=== PATIENT | male | born 1980 | race Caucasian/White ===

== ENCOUNTER 2020-04-27 20:37 | Emergency (ER) | payer BC, OTHER ==
--- NOTE | 2020-04-27 21:12 | ED General ---
General Chief Complaint: General Problems/Pain Stated Complaint: BLOOD PRESSURE PROBLEMS Nursing Triage Note: Pt complaining of bp issues, stating that it keeps spiking. Pt states he has intermittent nausea and a headache Nursing Sepsis Screen: No Definite Risk History of Present Illness Date Seen by Provider: Apr 27, 2020 Time Seen by Provider: 21:07 Initial Comments Patient presenting to emergency department for multiple symptoms including headache dizziness nausea indigestion upset stomach fatigue and increased sleeping hypertension and tachycardia and generally not feeling well. Patient says that he has had off-and-on symptoms like this for the past 5-6 years and he has had multiple workups including cardiac and endocrine including pheochromocytoma testing. He describes it as he started feeling poorly when he took out the trash as he had dyspnea on exertion and then when he got back he felt nauseated and dizzy and he took his blood pressure and his blood pressure was 150/100 and then he said his blood pressure decreased to 140/70 and he consider this a very large fluctuation in his blood pressure and this made him worried given he has family history of heart attacks and strokes and wanted to be evaluated in the emergency department. Allergies and Home Medications Allergies Coded Allergies: codeine (Verified Allergy, Unknown, 04/27/20) Patient Home Medication List Home Medication List Reviewed: Yes Review of Systems Review of Systems Constitutional: dizziness, malaise, weakness EENTM: no symptoms reported Respiratory: dyspnea on exertion Cardiovascular: no symptoms reported Gastrointestinal: abdominal pain, nausea Genitourinary: no symptoms reported Musculoskeletal: no symptoms reported Skin: no symptoms reported Psychiatric/Neurological: Anxiety, Headache All Other Systems Reviewed Negative Unless Noted: Yes Past Cfbmysd-Incctc-Ewfhim Hx Patient Social History Alcohol Use: Denies Use Recreational Drug Use: No Smoking Status: Never a Smoker Recent Foreign Travel: No Contact w/Someone Who Travel: No Recent Infectious Disease Expo: No Recent Hopitalizations: No Physical Abuse: No Sexual Abuse: No Past Medical History Surgeries: No Respiratory: No Cardiac: Yes Hypertension Neurological: No Genitourinary: No Gastrointestinal: No Musculoskeletal: No Endocrine: No HEENT: No Cancer: No Psychosocial: Yes Anxiety, Depression Integumentary: No Physical Exam Vital Signs Vital Signs - First Documented 04/27/20 20:45 Temp 36.8 Pulse 88 Resp 18 B/P (MAP) 152/85 (107) Pulse Ox 99 O2 Delivery Room Air Capillary Refill : Less Than 3 Seconds Height, Weight, BMI Height: '" Weight: lbs. oz. kg; BMI Method: General Appearance: No Apparent Distress, WD/WN HEENT: TMs Normal Neck: Supple Respiratory: Lungs Clear, No Respiratory Distress Cardiovascular: Regular Rate, Rhythm, Normal Peripheral Pulses Gastrointestinal: Non Tender, Soft Extremity: Normal Capillary Refill, No Pedal Edema Neurologic/Psychiatric: Alert, Oriented x3, No Motor/Sensory Deficits Skin: Warm/Dry Progress/Results/Core Measures Suspected Sepsis Recent Fever Within 48 Hours: No Infection Criteria Present: None New/Unexplained Altered Menta: No Sepsis Screen: No Definite Risk SIRS Temperature: Pulse: 88 Respiratory Rate: 18 Laboratory Tests 04/27/20 21:10: White Blood Count 5.1 Blood Pressure 152 /85 Mean: 107 Laboratory Tests 04/27/20 21:10: Creatinine 1.21, Platelet Count 178, Total Bilirubin 0.3 Results/Orders Lab Results Laboratory Tests Test 04/27/20 21:10 04/27/20 21:40 Range/Units White Blood Count 5.1 4.3-11.0 10^3/uL Red Blood Count 4.57 4.35-5.85 10^6/uL Hemoglobin 13.9 13.3-17.7 G/DL Hematocrit 40 40-54 % Mean Corpuscular Volume 87 80-99 FL Mean Corpuscular Hemoglobin 30 25-34 PG Mean Corpuscular Hemoglobin Concent 35 32-36 G/DL Red Cell Distribution Width 11.9 10.0-14.5 % Platelet Count 178 130-400 10^3/uL Mean Platelet Volume 11.0 H 7.4-10.4 FL Immature Granulocyte % (Auto) 0 % Neutrophils (%) (Auto) 51 42-75 % Lymphocytes (%) (Auto) 36 12-44 % Monocytes (%) (Auto) 8 0-12 % Eosinophils (%) (Auto) 4 0-10 % Basophils (%) (Auto) 1 0-10 % Neutrophils # (Auto) 2.6 1.8-7.8 X 10^3 Lymphocytes # (Auto) 1.8 1.0-4.0 X 10^3 Monocytes # (Auto) 0.4 0.0-1.0 X 10^3 Eosinophils # (Auto) 0.2 0.0-0.3 10^3/uL Basophils # (Auto) 0.0 0.0-0.1 10^3/uL Immature Granulocyte # (Auto) 0.0 0.0-0.1 10^3/uL Sodium Level 135 135-145 MMOL/L Potassium Level 4.2 3.6-5.0 MMOL/L Chloride Level 100 98-107 MMOL/L Carbon Dioxide Level 27 21-32 MMOL/L Anion Gap 8 5-14 MMOL/L Blood Urea Nitrogen 12 7-18 MG/DL Creatinine 1.21 0.60-1.30 MG/DL Estimat Glomerular Filtration Rate > 60 BUN/Creatinine Ratio 10 Glucose Level 100 70-105 MG/DL Calcium Level 9.6 8.5-10.1 MG/DL Corrected Calcium 9.3 8.5-10.1 MG/DL Magnesium Level 2.1 1.6-2.4 MG/DL Total Bilirubin 0.3 0.1-1.0 MG/DL Aspartate Amino Transf (AST/SGOT) 37 H 5-34 U/L Alanine Aminotransferase (ALT/SGPT) 75 H 0-55 U/L Alkaline Phosphatase 73 40-136 U/L Troponin I < 0.30 <0.30 NG/ML Pro-B-Type Natriuretic Peptide < 5.0 <75.0 PG/ML Total Protein 7.2 6.4-8.2 GM/DL Albumin 4.4 3.2-4.5 GM/DL Lipase 36 8-78 U/L Serum Alcohol < 10 <10 MG/DL Urine Color STRAW Urine Clarity CLEAR Urine pH 7.0 5-9 Urine Specific [place] <=1.005 1.016-1.022 Urine Protein NEGATIVE NEGATIVE Urine Glucose (UA) NEGATIVE NEGATIVE Urine Ketones NEGATIVE NEGATIVE Urine Nitrite NEGATIVE NEGATIVE Urine Bilirubin NEGATIVE NEGATIVE Urine Urobilinogen 0.2 < = 1.0 MG/DL Urine Leukocyte Esterase NEGATIVE NEGATIVE Urine RBC (Auto) NEGATIVE NEGATIVE Urine RBC NONE /HPF Urine WBC NONE /HPF Urine Squamous Epithelial Cells RARE /HPF Urine Crystals NONE /LPF Urine Bacteria NEGATIVE /HPF Urine Casts NONE /LPF Urine Mucus NEGATIVE /LPF Urine Culture Indicated NO Urine Opiates Screen NEGATIVE NEGATIVE Urine Oxycodone Screen NEGATIVE NEGATIVE Urine Methadone Screen NEGATIVE NEGATIVE Urine Propoxyphene Screen NEGATIVE NEGATIVE Urine Barbiturates Screen NEGATIVE NEGATIVE Ur Tricyclic Antidepressants Screen POSITIVE H NEGATIVE Urine Phencyclidine Screen NEGATIVE NEGATIVE Urine Amphetamines Screen NEGATIVE NEGATIVE Urine Methamphetamines Screen NEGATIVE NEGATIVE Urine Benzodiazepines Screen NEGATIVE NEGATIVE Urine Cocaine Screen NEGATIVE NEGATIVE Urine Cannabinoids Screen NEGATIVE NEGATIVE My Orders Orders - TORI PETERSON DO Iv/Invasive Line Insertion .IV start (04/27/20 21:04) Cbc With Automated Diff (04/27/20 21:04) Comprehensive Metabolic Panel (04/27/20 21:04) Troponin I Fs (04/27/20 21:04) Probnp Fs (04/27/20 21:04) Magnesium (04/27/20 21:04) Lipase (04/27/20 21:04) Chest 1 View Ap/Pa Only (04/27/20 21:04) Ua Culture If Indicated (04/27/20 21:04) Drug Screen Stat (Urine) (04/27/20 21:04) Alcohol (04/27/20 21:04) Ns Iv 1000 Ml (Sodium Chloride 0.9%) (04/27/20 21:15) Ed Iv/Invasive Line Start (04/27/20 21:22) Monotest (04/27/20 22:13) Vital Signs/I&O 04/27/20 20:45 Temp 36.8 Pulse 88 Resp 18 B/P (MAP) 152/85 (107) Pulse Ox 99 O2 Delivery Room Air Capillary Refill : Less Than 3 Seconds Blood Pressure Mean: 107 Progress Note : Progress Note Patient with multiple nonspecific symptoms that seem to be more of a long- standing issue said he felt worse tonight. I offered to give him something for his headache and nausea but he says since his blood pressures come down that his symptoms have completely resolved. He says that when this happens he gets a bag of IV fluids and that makes him feel better. I will check labs give him IV fluids and then reassess. Patient's symptoms completely resolved and he is asymptomatic here he has a heart rate of 78 and a blood pressure 131/77. His workup is completely normal except for mild transaminitis which I told him could be related to Tylenol alcohol viral infections or other medication such as his Elavil there is a side effect listed for hepatitis. I went through all the possible side effects from his lisinopril and Elavil and he certainly does have multiple symptoms from these medications and I told him it might be a good idea to follow with his primary care provider and discuss his medications and possible alternatives. No acute pathology is detected and he appears well with normal vital signs and is asymptomatic so he'll be discharged in stable condition told to follow with his primary care provider this week and come back to the ED sooner with any new worsening pain shortness of breath or other general concerns. Of note I will do a mononucleosis test that he does not want to stay for the results so I will discharge him and told him to follow with his primary care provider for the resu lts of this as well. Patient aware and agreeable with plan and verbalized understanding of the above instructions. Departure Impression Primary Impression: Fatigue Qualified Codes: R53.82 - Chronic fatigue, unspecified Additional Impressions: Dizziness Transaminitis VARMA (dyspnea on exertion) Disposition: 01 HOME, SELF-CARE Condition: Stable Departure-Patient Inst. Referrals: NO,LOCAL PHYSICIAN (PCP/Family) Primary Care Physician Patient Instructions: Dizziness, Adult ED Add. Discharge Instructions: Follow with your PCP within 1 week to discuss you symptoms and medications. All discharge instructions reviewed with patient and/or family. Voiced understa nding. TORI PETERSON DO Apr 27, 2020 21:12
[2020-04-27] MEDS ORDERED: NS IV 1000 ML 1,000 ML IV SCH (21:15)
--- NOTE | 2020-04-27 21:23 | Diagnostic Imaging Report ---
EXAM: Chest 1 view AP/PA only. INDICATION: Dyspnea on exertion. COMPARISON: None. FINDINGS: Low lung volumes. Normal heart size and central pulmonary vascularity. No focal pulmonary opacity. No pleural effusion or pneumothorax. No acute osseous finding. IMPRESSION: Low lung volumes. Chest is otherwise negative. Dictated by: Dictated on workstation # [id number]
[2020-04-27 21:27] LABS: HEMATOCRIT 40 % (40-54); HEMOGLOBIN 13.9 G/DL (13.3-17.7); MEAN CORPUSCULAR HEMOGLOBIN 30 PG (25-34); MEAN CORPUSCULAR HGB CONC 35 G/DL (32-36); MEAN CORPUSCULAR VOLUME 87 FL (80-99); PLATELET COUNT 178 10^3/uL (130-400); WHITE BLOOD COUNT 5.1 10^3/uL (4.3-11.0)
[2020-04-27 21:28] LABS: BASOPHILS % (AUTO) 1 % (0-10); EOSINOPHILS # (AUTO) 0.2 10^3/uL (0.0-0.3); EOSINOPHILS % (AUTO) 4 % (0-10); LYMPHOCYTES # (AUTO) 1.8 X 10^3 (1.0-4.0); LYMPHOCYTES % (AUTO) 36 % (12-44); MONOCYTES # (AUTO) 0.4 X 10^3 (0.0-1.0); MONOCYTES % (AUTO) 8 % (0-12); NEUTROPHILS # (AUTO) 2.6 X 10^3 (1.8-7.8); NEUTROPHILS % (AUTO) 51 % (42-75)
[2020-04-27 21:47] LABS: BILIRUBIN,URINE NEGATIVE (NEGATIVE); CLARITY,URINE CLEAR; COLOR,URINE STRAW; GLUCOSE, URINE (UA) NEGATIVE (NEGATIVE); KETONES,URINE NEGATIVE (NEGATIVE); NITRITE,URINE NEGATIVE (NEGATIVE); PROTEIN,URINE NEGATIVE (NEGATIVE)
[2020-04-27 21:48] LABS: BACTERIA,URINE NEGATIVE /HPF; LEUKOCYTE ESTERASE ,URINE NEGATIVE (NEGATIVE); SQUAMOUS EPITHELIAL CELL,UR RARE /HPF
[2020-04-27 21:48] LABS: ALANINE AMINOTRANSFERASE 75 U/L (0-55); ALBUMIN 4.4 GM/DL (3.2-4.5); ALKALINE PHOSPHATASE 73 U/L (40-136); BILIRUBIN,TOTAL 0.3 MG/DL (0.1-1.0); BUN/CREATININE RATIO 10; CALCIUM 9.6 MG/DL (8.5-10.1); CARBON DIOXIDE 27 MMOL/L (21-32); CHLORIDE 100 MMOL/L (98-107); CREATININE SERUM 1.21 MG/DL (0.60-1.30); GFR ESTIMATED > 60; GLUCOSE 100 MG/DL (70-105); MAGNESIUM 2.1 MG/DL (1.6-2.4); POTASSIUM 4.2 MMOL/L (3.6-5.0); SODIUM 135 MMOL/L (135-145); TOTAL PROTEIN 7.2 GM/DL (6.4-8.2)
[2020-04-27 21:49] LABS: LIPASE 36 U/L (8-78)
[2020-04-27 22:00] LABS: AMPHETAMINE SCREEN, URINE NEGATIVE (NEGATIVE); BARBITURATE SCREEN URINE NEGATIVE (NEGATIVE); BENZODIAZEPINES SCREEN URINE NEGATIVE (NEGATIVE); CANNABINOID SCREEN, URINE NEGATIVE (NEGATIVE); COCAINE SCREEN URINE NEGATIVE (NEGATIVE); METHADONE STAT NEGATIVE (NEGATIVE); METHAMPHETAMINE SCREEN URINE S NEGATIVE (NEGATIVE); OPIATE SCREEN URINE NEGATIVE (NEGATIVE); OXYCODONE STAT NEGATIVE (NEGATIVE); PROPOXYPHENE STAT NEGATIVE (NEGATIVE); TRICYCLIC ANTIDEPRESSANTS SCRE POSITIVE (NEGATIVE)
[2020-04-27 22:28] VITALS: BP 131/77
== END 2020-04-27 22:30 | disposition home or self-care (01) ==
LOC: EDUNIT# 20:37 → ER FS 20:42
DX: R53.83 Other fatigue (principal); R42 Dizziness and giddiness; R74.01 Elevation of levels of liver transaminase levels; R06.09 Other forms of dyspnea; F41.9 Anxiety disorder, unspecified; Z88.5 Allergy status to narcotic agent
CPT/HCPCS: 36415; 71045; 80053; 80306; 81000; 83690; 83735; 83880; 84484; 85025; 86308; 99284; G0480; 80320; 93005

== ENCOUNTER 2021-10-01 01:37 | Emergency (ER) | payer BC ==
[~2021-10-01] VITALS: Ht 190.5 cm; Wt 113.3 kg
--- NOTE | 2021-10-01 01:48 | ED General ---
General Stated Complaint: STOMACH AND LEG SPASMS History of Present Illness Date Seen by Provider: Oct 01, 2021 Time Seen by Provider: 01:48 Initial Comments 41-year-old male with PMH of anxiety and depression, schizophrenia, is here with complaints of anxiety. Patient has been on Seroquel for 1 month and he took it today around midnight. He reports feeling tingly allover within 5 minutes of taking it, and then felt a 'flash of cold' go across his abdomen. Pt has had multiple food allergies before which had a similar reaction. Pt is speaking in complete sentences. Denies shortness of breath, oral swelling or throat swelling, chest pain, abdominal pain, diarrhea, nausea and vomiting, dizziness. Patient thinks he is having a side effect to the Seroquel. Allergies and Home Medications Allergies Coded Allergies: codeine (Verified Allergy, Unknown, 04/27/20) Patient Home Medication List Home Medication List Reviewed: Yes Review of Systems Review of Systems Constitutional: no symptoms reported EENTM: no symptoms reported Respiratory: no symptoms reported Cardiovascular: no symptoms reported Gastrointestinal: no symptoms reported Genitourinary: no symptoms reported Musculoskeletal: no symptoms reported Skin: no symptoms reported Psychiatric/Neurological: No Symptoms Reported Hematologic/Lymphatic: No Symptoms Reported Immunological/Allergic: no symptoms reported, see HPI (allergy reaction to seroquel) Past Hitawtj-Gztavz-Nzewug Hx Past Medical History Surgeries: No Respiratory: No Cardiac: Yes Hypertension Neurological: No Genitourinary: No Gastrointestinal: No Musculoskeletal: No Endocrine: No HEENT: No Cancer: No Psychosocial: Yes Anxiety, Depression Integumentary: No Physical Exam Vital Signs Capillary Refill : Height, Weight, BMI Height: '" Weight: lbs. oz. kg; BMI Method: General Appearance: No Apparent Distress, Anxious HEENT: PERRL/EOMI, Normal ENT Inspection, Pharynx Normal Neck: Full Range of Motion Respiratory: Chest Non Tender, Lungs Clear, Normal Breath Sounds, No Accessory Muscle Use, No Respiratory Distress Cardiovascular: Regular Rate, Rhythm, No Edema Gastrointestinal: Normal Bowel Sounds, Non Tender, Soft Back: Normal Inspection, No CVA Tenderness Extremity: Normal Range of Motion Neurologic/Psychiatric: Alert, Oriented x3, No Motor/Sensory Deficits, Normal Mood/Affect, Other Skin: Normal Color Progress/Results/Core Measures Suspected Sepsis SIRS Temperature: Pulse: Respiratory Rate: Blood Pressure / Mean: Results/Orders Lab Results Laboratory Tests Test 10/01/21 02:06 Range/Units Urine Color YELLOW Urine Clarity CLEAR Urine pH 6.0 5-9 Urine Specific [place] <=1.005 1.016-1.022 Urine Protein NEGATIVE NEGATIVE Urine Glucose (UA) NEGATIVE NEGATIVE Urine Ketones NEGATIVE NEGATIVE Urine Nitrite NEGATIVE NEGATIVE Urine Bilirubin NEGATIVE NEGATIVE Urine Urobilinogen 0.2 < = 1.0 MG/DL Urine Leukocyte Esterase NEGATIVE NEGATIVE Urine RBC (Auto) NEGATIVE NEGATIVE Urine RBC NONE /HPF Urine WBC NONE /HPF Urine Squamous Epithelial Cells RARE /HPF Urine Crystals NONE /LPF Urine Bacteria NEGATIVE /HPF Urine Casts NONE /LPF Urine Mucus NEGATIVE /LPF Urine Culture Indicated NO My Orders Orders - ALIRIO MARTINEZ MD Ed Iv/Invasive Line Start (10/01/21 02:17) Ns Iv 1000 Ml (Sodium Chloride 0.9%) (10/01/21 02:30) Famotidine Injection (Pepcid Injection) (10/01/21 02:17) Methylprednisolone Sod Succ (Solu-Medrol (10/01/21 02:17) Ua Culture If Indicated (10/01/21 02:18) Vital Signs/I&O Capillary Refill : Progress Note : Progress Note 1. DRUG REACTION/ ALLERGY: - Labs normal - NS IVF bolus STAT - Pepcid 20mg iv/ Solumedrol 125mg iv - Pt took Benadryl at home - UA normal - Prescription for 3 days of prednisone 50mg and epi pen with instructions -Follow up with PCP within 7 days - Stop Seroquel - Call Psychiatrist tomorrow for medication reassessment - No respiratory involvement -The patient was seen in the ED, and treated appropriately to presentation at a specific point in time. Patient is informed that there is a possibility that disease and illness can evolve and change in acuity rapidly or slowly after p atient is discharged from the ER. Precautionary advice given to the patient for immediate return to ER if symptoms worsen or do not resolve, and to seek emergency care sooner rather than later. Pt also advised on the importance of PCP follow up and compliance with management and follow up plan with PCP and/or specialist, as this is part of the management plan. Pt verbally expressed understanding. Departure Impression Primary Impression: Drug allergy Disposition: 01 HOME, SELF-CARE Condition: Improved Departure-Patient Inst. Referrals: CRISTIANA MARTE MD (PCP/Family) Primary Care Physician Patient Instructions: Allergic Reaction ED, Drug Allergy Add. Discharge Instructions: - Prescription for 3 days of prednisone 50mg and epi pen with instructions -Follow up with PCP within 7 days - Stop Seroquel - Call Psychiatrist tomorrow for medication reassessment - Return to ER if symptoms worsen Scripts Prednisone (Prednisone) 50 Mg Tab 50 MG PO DAILY for 3 Days, #3 TAB Prov: ALIRIO MARTINEZ MD 10/01/21 Epinephrine (Epipen 2-[place]) 0.3 Mg/0.3 Ml Auto.injct 0.3 MG IJ ONCE for Shortness of Breath, #1 ML Prov: ALIRIO MARTINEZ MD 10/01/21 ALIRIO MARTINEZ MD Oct 01, 2021 01:48
[2021-10-01] MEDS ORDERED: FAMOTIDINE 20MG/2ML IV (PEPCID) IV STA (02:17)
[2021-10-01] MEDS ORDERED: methylPREDNISolone 125 MG (Solu-MEDROL) VIAL IV STA (02:17)
[2021-10-01] MEDS ORDERED: NS IV 1000 ML 1,000 ML IV SCH (02:30)
[2021-10-01 02:32] LABS: BILIRUBIN,URINE NEGATIVE (NEGATIVE); CLARITY,URINE CLEAR; COLOR,URINE YELLOW; GLUCOSE, URINE (UA) NEGATIVE (NEGATIVE); KETONES,URINE NEGATIVE (NEGATIVE); LEUKOCYTE ESTERASE ,URINE NEGATIVE (NEGATIVE); NITRITE,URINE NEGATIVE (NEGATIVE); PROTEIN,URINE NEGATIVE (NEGATIVE)
[2021-10-01 02:40] LABS: BACTERIA,URINE NEGATIVE /HPF; SQUAMOUS EPITHELIAL CELL,UR RARE /HPF
[2021-10-01] MEDS ORDERED: EPIN0.3P3 IJ (03:20)
[2021-10-01] MEDS ORDERED: PRD50T PO (03:20)
[2021-10-01 03:28] VITALS: BP 127/84
[2021-10-01] MEDS ORDERED: QUET25TA35 PO (03:55)
[2021-10-01] MEDS ORDERED: LISI5TAB20 PO (03:55)
[2021-10-01] MEDS ORDERED: ALPR0.254 PO (03:55)
== END 2021-10-01 03:28 | disposition home or self-care (01) ==
LOC: EDUNIT# 01:37 → ER FS 01:40
DX: R20.2 Paresthesia of skin (principal); T43.595A Adverse effect of other antipsychotics and neuroleptics, initial encounter; F41.9 Anxiety disorder, unspecified; Z79.899 Other long term (current) drug therapy
CPT/HCPCS: 81000

== ENCOUNTER 2022-04-05 19:02 | Emergency (ER) | payer BC ==
[~2022-04-05] VITALS: Ht 190.5 cm; Wt 96.0 kg
[~2022-04-05 19:02] MED LIST: ALPR0.254 PO; EPIN0.3P3 IJ; LISI5TAB20 PO; PRD50T PO; QUET25TA35 PO
[2022-04-05 19:37] LABS: BASOPHILS % (AUTO) 1 % (0-10); EOSINOPHILS # (AUTO) 0.2 10^3/uL (0.0-0.3); EOSINOPHILS % (AUTO) 3 % (0-10); HEMATOCRIT 43 % (40-54); HEMOGLOBIN 15.3 g/dL (13.3-17.7); LYMPHOCYTES # (AUTO) 1.9 10^3/uL (1.0-4.0); LYMPHOCYTES % (AUTO) 33 % (12-44); MEAN CORPUSCULAR HEMOGLOBIN 30 pg (25-34); MEAN CORPUSCULAR HGB CONC 36 g/dL (32-36); MEAN CORPUSCULAR VOLUME 84 fL (80-99); MONOCYTES # (AUTO) 0.4 10^3/uL (0.0-1.0); MONOCYTES % (AUTO) 7 % (0-12); NEUTROPHILS # (AUTO) 3.3 10^3/uL (1.8-7.8); NEUTROPHILS % (AUTO) 57 % (42-75); PLATELET COUNT 257 10^3/uL (130-400); WHITE BLOOD COUNT 5.8 10^3/uL (4.3-11.0)
--- NOTE | 2022-04-05 19:50 | Diagnostic Imaging Report ---
INDICATION: Chest pressure. Comparison is made with prior examination of 04/27/2020. FINDINGS: The heart size, mediastinal configuration, and pulmonary vascularity are within normal limits. There is no pleural effusion, pneumothorax, or pneumonia. The osseous structures are unremarkable. IMPRESSION: No acute cardiopulmonary abnormality. Dictated by: Dictated on workstation # [id number]
[2022-04-05 20:01] LABS: INR 0.9 (0.8-1.4); PROTHROMBIN TIME PATIENT 12.5 SEC (12.2-14.7)
[2022-04-05 20:02] LABS: ALANINE AMINOTRANSFERASE 26 U/L (0-55); ALBUMIN 4.8 GM/DL (3.2-4.5); ALKALINE PHOSPHATASE 74 U/L (40-136); BILIRUBIN,TOTAL 0.5 MG/DL (0.1-1.0); BUN/CREATININE RATIO 9; CALCIUM 9.6 MG/DL (8.5-10.1); CARBON DIOXIDE 30 MMOL/L (21-32); CHLORIDE 100 MMOL/L (98-107); CREATININE SERUM 1.29 MG/DL (0.60-1.30); GFR ESTIMATED 72; GLUCOSE 103 MG/DL (70-105); MAGNESIUM 2.1 MG/DL (1.6-2.4); POTASSIUM 4.1 MMOL/L (3.6-5.0); SODIUM 138 MMOL/L (135-145); TOTAL PROTEIN 7.6 GM/DL (6.4-8.2)
--- NOTE | 2022-04-05 20:20 | ED Chest Pain ---
General Chief Complaint: Chest Pain Stated Complaint: CHEST PRESSURE Nursing Triage Note: PATIENT PRESENTS TO THE ED WITH C/O LEFT SIDED CHEST PRESSURE. REPORTS HISTORY OF ANXIETY BUT STATES THIS PAIN IS DIFFERENT. PRESSURE EXTENDS INTO LEFT SHOULDER. PATIENT REPORTS HE TOOK HIS PRESCRIPTION XANAX 1 HOUR AGO AND PRESSURE HAS NOT IMPROVED. DENIES COUGH OR FEVER. Source: patient Exam Limitations: no limitations History of Present Illness Date Seen by Provider: Apr 05, 2022 Time Seen by Provider: 19:00 Initial Comments Patient is a 41-year-old male with history of anxiety presents with epigastric/left-sided chest pain starting approximately 4 hours prior to to arrival. Patient states pressure is similar to prior anxiety episodes but is longer in duration. Pressure extends into left shoulder and arm. Is nonexert ional not relieved with position change or movement. Patient did take Xanax 1 hour prior to ED arrival and at the time of this interview, his symptoms have fully resolved. He denies shortness of breath nausea sweats or exertional symptoms. He states that he is under significant stress at this time a year related to work deadlines and the holidays. He is a non-smoker. Cardiac risk factors and he has hypertension and dyslipidemia. Family history is negative. No other acute symptoms or complaints. Patient is a non-smoker Timing/Duration: 4-6 hours Severity/Quality: moderate Location: central Radiation: other Activities at Onset: other Prior CP/Workup: other Modifying Factors: improves with other Allergies and Home Medications Allergies Coded Allergies: codeine (Verified Allergy, Unknown, 04/27/20) acetaminophen (Unverified Adverse Reaction, Mild, Vomiting, 10/01/21) oxycodone (Unverified Adverse Reaction, Mild, Vomiting, 10/01/21) quetiapine (Unverified Adverse Reaction, Mild, Spasms of lower torso, 10/01/21) Patient Home Medication List Home Medication List Reviewed: Yes ALPRAZolam (ALPRAZolam) 0.25 Mg Tablet, 0.25 MG PO TID PRN for ANXIETY, (Reported) Entered as Reported by: DIPTI SALDANA on 10/01/21 0355 Epinephrine (Epipen 2-[place]) 0.3 Mg/0.3 Ml Auto.injct, 0.3 MG IJ ONCE Prescribed by: ALIRIO MARTINEZ MD on 10/01/21 0320 Lisinopril (Lisinopril) 5 Mg Tablet, 5 MG PO DAILY, (Reported) Entered as Reported by: DIPTI SALDANA on 10/01/21 0355 Prednisone (Prednisone) 50 Mg Tab, 50 MG PO DAILY Prescribed by: ALIRIO MARTINEZ MD on 10/01/21 0320 Review of Systems Review of Systems Constitutional: see HPI EENTM: See HPI Respiratory: See HPI Cardiovascular: See HPI Gastrointestinal: See HPI Genitourinary: See HPI Musculoskeletal: see HPI Skin: see HPI Psychiatric/Neurological: See HPI Endocrine: See HPI Hematologic/Lymphatic: See HPI All Other Systems Reviewed Negative Unless Noted: No Past Rvgyiwz-Nnzbgj-Snamrn Hx Patient Social History Tobacco Use?: No Use of E-Cig and/or Vaping dev: No Substance use?: No Alcohol Use?: No Pt feels they are or have been: No Immunizations Up To Date First/Initial COVID19 Vaccinat: YES Second COVID19 Vaccination Adam: YES Past Medical History Surgery/Hospitalization HX: Multiple serious food allergies, Anxiety, Insomnia, HTN Surgeries: No Respiratory: No Cardiac: Yes Hypertension Neurological: No Genitourinary: No Gastrointestinal: No Musculoskeletal: No Endocrine: No HEENT: No Cancer: No Psychosocial: Yes Anxiety, Depression Integumentary: No Physical Exam Vital Signs Vital Signs - First Documented 04/05/22 19:20 Pulse 85 Resp 17 B/P (MAP) 132/90 (104) Pulse Ox 100 O2 Delivery Room Air Capillary Refill : Less Than 3 Seconds Height, Weight, BMI Height: '" Weight: lbs. oz. kg; 26.00 BMI Method: General Appearance: No Apparent Distress, WD/WN HEENT: PERRL/EOMI, Normal ENT Inspection Neck: Full Range of Motion, Normal Inspection Respiratory: Lungs Clear, Normal Breath Sounds, Accessory Muscle Use Gastrointestinal: Non Tender, Soft Neurologic/Psychiatric: Alert, Oriented x3 Focused Exam Sepsis Stage: Ruled Out Progress/Results/Core Measures Results/Orders Lab Results Laboratory Tests Test 04/05/22 19:30 Range/Units White Blood Count 5.8 4.3-11.0 10^3/uL Red Blood Count 5.08 4.30-5.52 10^6/uL Hemoglobin 15.3 13.3-17.7 g/dL Hematocrit 43 40-54 % Mean Corpuscular Volume 84 80-99 fL Mean Corpuscular Hemoglobin 30 25-34 pg Mean Corpuscular Hemoglobin Concent 36 32-36 g/dL Red Cell Distribution Width 12.0 10.0-14.5 % Platelet Count 257 130-400 10^3/uL Mean Platelet Volume 11.0 9.0-12.2 fL Immature Granulocyte % (Auto) 0 % Neutrophils (%) (Auto) 57 42-75 % Lymphocytes (%) (Auto) 33 12-44 % Monocytes (%) (Auto) 7 0-12 % Eosinophils (%) (Auto) 3 0-10 % Basophils (%) (Auto) 1 0-10 % Neutrophils # (Auto) 3.3 1.8-7.8 10^3/uL Lymphocytes # (Auto) 1.9 1.0-4.0 10^3/uL Monocytes # (Auto) 0.4 0.0-1.0 10^3/uL Eosinophils # (Auto) 0.2 0.0-0.3 10^3/uL Basophils # (Auto) 0.0 0.0-0.1 10^3/uL Immature Granulocyte # (Auto) 0.0 0.0-0.1 10^3/uL Prothrombin Time 12.5 12.2-14.7 SEC INR Comment 0.9 0.8-1.4 Activated Partial Thromboplast Time 31 24-35 SEC Sodium Level 138 135-145 MMOL/L Potassium Level 4.1 3.6-5.0 MMOL/L Chloride Level 100 98-107 MMOL/L Carbon Dioxide Level 30 21-32 MMOL/L Anion Gap 8 5-14 MMOL/L Blood Urea Nitrogen 11 7-18 MG/DL Creatinine 1.29 0.60-1.30 MG/DL Estimat Glomerular Filtration Rate 72 BUN/Creatinine Ratio 9 Glucose Level 103 70-105 MG/DL Calcium Level 9.6 8.5-10.1 MG/DL Corrected Calcium 8.5-10.1 MG/DL Magnesium Level 2.1 1.6-2.4 MG/DL Total Bilirubin 0.5 0.1-1.0 MG/DL Aspartate Amino Transf (AST/SGOT) 16 5-34 U/L Alanine Aminotransferase (ALT/SGPT) 26 0-55 U/L Alkaline Phosphatase 74 40-136 U/L Myoglobin 35.7 <72.0 NG/ML Troponin I < 0.30 <0.30 NG/ML Total Protein 7.6 6.4-8.2 GM/DL Albumin 4.8 H 3.2-4.5 GM/DL My Orders Orders - MONICA ANGUIANO DO Ekg Tracing (04/05/22:29) Cbc With Automated Diff (04/05/22:) Magnesium (04/05/22:) Chest 1 View Ap/Pa Only (04/05/22) Comprehensive Metabolic Panel (04/05/22) Myoglobin Serum (04/05/22:) Protime With Inr (04/05/22) Partial Thromboplastin Time (04/05/22) O2 (04/05/22) Monitor-Rhythm Ecg Trace Only (04/05/22:) Ed Iv/Invasive Line Start (04/05/22:) Troponin I Fs (04/05/22:) Vital Signs/I&O 04/05/22 19:20 Pulse 85 Resp 17 B/P (MAP) 132/90 (104) Pulse Ox 100 O2 Delivery Room Air Blood Pressure Mean: 104 Departure Communication (Admissions) EKG: Normal sinus rhythm, no acute ST-T wave changes. Chest x-ray: No acute cardiopulmonary disease per radiology report. Patient with nonexertional chest pain relieved with Xanax prior to ED arrival. Troponin is negative despite 4 hours of continuous chest pain prior to ED arrival. Recommendations are lifestyle modification and PCP follow-up for furt her risk ratification and testing as needed. Return precautions reviewed. Patient verbalizes understanding and agreement with discharge instructions prior to departure. Impression Primary Impression: Chest pain Disposition: HOME, SELF-CARE Condition: Stable Departure-Patient Inst. Decision time for Depature: 20:20 Referrals: CRISTIANA MARTE MD (PCP/Family) Primary Care Physician Patient Instructions: Chest Pain Add. Discharge Instructions: You were evaluated in the emergency department for chest pain. EKG lab and chest x-ray were performed and are nondiagnostic. The exact cause of your symptoms has not been determined but is consistent with a heightened anxiety state. Please continue home medications, follow-up and follow-up with your PCP for further review of risk factors and management of cholesterol. In the enriqueta ntime if you develop new or concerning symptoms return to the emergency department. All discharge instructions reviewed with patient and/or family. Voiced understanding. MONICA ANGUIANO DO Apr 05, 2022 20:20
[2022-04-05 20:24] VITALS: BP 132/89
== END 2022-04-05 20:24 | disposition home or self-care (01) ==
LOC: EDUNIT# 19:02 → ER FS 19:03
DX: R07.89 Other chest pain (principal)
CPT/HCPCS: 36415; 71045; 80053; 83735; 83874; 84484; 85025; 85610; 85730; 93005; 93041

== ENCOUNTER 2022-07-28 14:09 | Emergency (ER) | payer BC ==
[~2022-07-28] VITALS: Ht 190.5 cm; Wt 97.5 kg
[2022-07-28 14:22] LABS: BASOPHILS # (AUTO) 0.1 10^3/uL (0.0-0.1); BASOPHILS % (AUTO) 1 % (0-10); EOSINOPHILS # (AUTO) 0.2 10^3/uL (0.0-0.3); EOSINOPHILS % (AUTO) 4 % (0-10); HEMATOCRIT 43 % (40-54); HEMOGLOBIN 14.8 g/dL (13.3-17.7); LYMPHOCYTES # (AUTO) 2.4 10^3/uL (1.0-4.0); LYMPHOCYTES % (AUTO) 39 % (12-44); MEAN CORPUSCULAR HEMOGLOBIN 30 pg (25-34); MEAN CORPUSCULAR HGB CONC 35 g/dL (32-36); MEAN CORPUSCULAR VOLUME 86 fL (80-99); MEAN PLATELET VOLUME 11.1 fL (9.0-12.2); MONOCYTES # (AUTO) 0.4 10^3/uL (0.0-1.0); MONOCYTES % (AUTO) 6 % (0-12); NEUTROPHILS # (AUTO) 3.1 10^3/uL (1.8-7.8); NEUTROPHILS % (AUTO) 50 % (42-75); PLATELET COUNT 222 10^3/uL (130-400); WHITE BLOOD COUNT 6.1 10^3/uL (4.3-11.0)
--- NOTE | 2022-07-28 14:36 | Diagnostic Imaging Report ---
INDICATION: Chest pain COMPARISON: 04/05/2022. FINDINGS: Single frontal view of the chest demonstrates normal heart size and pulmonary vascularity. The lungs are well aerated and clear. No large pleural effusion or pneumothorax is seen. The visualized osseous structures show no acute abnormalities. IMPRESSION: 1. No acute cardiopulmonary process. Dictated by: Dictated on workstation # [id number]
[2022-07-28 14:42] LABS: INR 0.9 (0.8-1.4); PROTHROMBIN TIME PATIENT 12.9 SEC (12.2-14.7)
[2022-07-28 14:50] LABS: BUN/CREATININE RATIO 9; CARBON DIOXIDE 27 MMOL/L (21-32); CHLORIDE 101 MMOL/L (98-107); CREATININE SERUM 1.38 MG/DL (0.60-1.30); GFR ESTIMATED 66; GLUCOSE 101 MG/DL (70-105); SODIUM 138 MMOL/L (135-145)
[2022-07-28 14:51] LABS: ALANINE AMINOTRANSFERASE 22 U/L (0-55); ALBUMIN 4.8 GM/DL (3.2-4.5); ALKALINE PHOSPHATASE 72 U/L (40-136); BILIRUBIN,TOTAL 0.5 MG/DL (0.1-1.0); CALCIUM 9.6 MG/DL (8.5-10.1); MAGNESIUM 2.1 MG/DL (1.6-2.4); TOTAL PROTEIN 7.4 GM/DL (6.4-8.2)
[2022-07-28] MEDS ORDERED: ASPIRIN 81 MG CHEW (CHILDREN'S ASA) PO ONE (15:45)
--- NOTE | 2022-07-28 16:28 | ED Chest Pain ---
General Chief Complaint: Chest Pain Stated Complaint: CHEST PAIN Nursing Triage Note: PT AMBULATE TO ROOM FS06 WITHOUT DIFFICULTY WITH C/O CHEST PAIN X30 MIN [employer]. Source: patient, family Exam Limitations: no limitations History of Present Illness Date Seen by Provider: Jul 28, 2022 Time Seen by Provider: 14:10 Initial Comments This 42-year-old gentleman presents to the emergency room with complaint of left sided chest pain described as an intense pressure and a paresthesia or numbness sensation. It radiates down into his left arm. He had a sudden onset about 30 minutes prior to arrival. He has a stress test pending but has not had a formal cardiac work-up in the past. He was seen in the emergency room last March for chest pain as well. He has had prior episodes. He reports prior episodes of chest pain have often resolved with the Xanax. He did take Xanax before coming to the emergency room but has not experienced relief. He has seen a presiding steward in the past but that was at least 5 years ago. The paresthesia extends into his hand and wrist. He reports his discomfort currently 4/10 with a previously being 6/10. He has felt slightly disoriented with this and has had some ear popping. He does not note any alleviating or exacerbating factors. His primary care provider is Dr. Marte in [place], [place]. Patient reports skiing in [place] a few weeks ago. He had injury to his left mid calf during that visit. They did drive and spend a significant amount of time sedentary in the car. Allergies and Home Medications Allergies Coded Allergies: codeine (Verified Allergy, Unknown, 04/27/20) acetaminophen (Unverified Adverse Reaction, Mild, Vomiting, 10/01/21) oxycodone (Unverified Adverse Reaction, Mild, Vomiting, 10/01/21) quetiapine (Unverified Adverse Reaction, Mild, Spasms of lower torso, 10/01/21) Patient Home Medication List Home Medication List Reviewed: Yes ALPRAZolam (ALPRAZolam) 0.25 Mg Tablet, 0.25 MG PO TID PRN for ANXIETY, (Reported) Entered as Reported by: DIPTI SALDANA on 10/01/21 0355 Epinephrine (Epipen 2-[place]) 0.3 Mg/0.3 Ml Auto.injct, 0.3 MG IJ ONCE Prescribed by: ALIRIO MARTINEZ MD on 10/01/21 0320 Lisinopril (Lisinopril) 5 Mg Tablet, 5 MG PO DAILY, (Reported) Entered as Reported by: DIPTI SALDANA on 10/01/21 0355 Prednisone (Prednisone) 50 Mg Tab, 50 MG PO DAILY Prescribed by: ALIRIO MARTINEZ MD on 10/01/21 0320 Review of Systems Review of Systems Constitutional: no symptoms reported EENTM: No Symptoms Reported Respiratory: No Symptoms Reported Cardiovascular: See HPI Gastrointestinal: No Symptoms Reported Genitourinary: No Symptoms Reported Musculoskeletal: no symptoms reported Skin: no symptoms reported Psychiatric/Neurological: See HPI Endocrine: No Symptoms Reported Hematologic/Lymphatic: No Symptoms Reported Past Eljbxmd-Uovbks-Sccppq Hx Patient Social History Tobacco Use?: No Smoking Status: Never a Smoker Smokeless Tobacco Frequency: Never a User Use of E-Cig and/or Vaping dev: No Use of E-Cig and/or Vaping Jethro: Never a User Substance use?: No Alcohol Use?: No Pt feels they are or have been: No Immunizations Up To Date First/Initial COVID19 Vaccinat: YES Second COVID19 Vaccination Adam: YES Past Medical History Surgery/Hospitalization HX: Multiple serious food allergies, Anxiety, Insomnia, HTN Surgeries: No Respiratory: No Cardiac: Yes High Cholesterol, Hypertension Neurological: No Genitourinary: No Gastrointestinal: No Musculoskeletal: No Endocrine: No HEENT: No Cancer: No Psychosocial: Yes Anxiety, Depression Integumentary: No Physical Exam Vital Signs Vital Signs - First Documented 07/28/22 14:09 Temp 36.1 Pulse 92 Resp 19 B/P (MAP) 140/87 (104) Pulse Ox 100 O2 Delivery Room Air Capillary Refill : Less Than 3 Seconds Height, Weight, BMI Height: '" Weight: lbs. oz. kg; 26.00 BMI Method: General Appearance: No Apparent Distress, WD/WN HEENT: PERRL/EOMI, Normal ENT Inspection Neck: Normal Inspection; No JVD Respiratory: Chest Non Tender, Lungs Clear, Normal Breath Sounds, No Accessory Muscle Use, No Respiratory Distress Cardiovascular: Regular Rate, Rhythm, No Edema, No Murmur, Normal Peripheral Pulses Gastrointestinal: Normal Bowel Sounds, Non Tender, Soft; No Distended Extremity: Normal Inspection, No Pedal Edema, Other (Mild tenderness in the left mid calf at the site of his injury without erythema, edema, or swelling.) Neurologic/Psychiatric: Alert, Oriented x3, No Motor/Sensory Deficits, Normal Mood/Affect Skin: Normal Color, Warm/Dry Progress/Results/Core Measures Results/Orders Lab Results Laboratory Tests Test 07/28/22 14:17 07/28/22 17:43 Range/Units White Blood Count 6.1 4.3-11.0 10^3/uL Red Blood Count 4.95 4.30-5.52 10^6/uL Hemoglobin 14.8 13.3-17.7 g/dL Hematocrit 43 40-54 % Mean Corpuscular Volume 86 80-99 fL Mean Corpuscular Hemoglobin 30 25-34 pg Mean Corpuscular Hemoglobin Concent 35 32-36 g/dL Red Cell Distribution Width 11.6 10.0-14.5 % Platelet Count 222 130-400 10^3/uL Mean Platelet Volume 11.1 9.0-12.2 fL Immature Granulocyte % (Auto) 0 % Neutrophils (%) (Auto) 50 42-75 % Lymphocytes (%) (Auto) 39 12-44 % Monocytes (%) (Auto) 6 0-12 % Eosinophils (%) (Auto) 4 0-10 % Basophils (%) (Auto) 1 0-10 % Neutrophils # (Auto) 3.1 1.8-7.8 10^3/uL Lymphocytes # (Auto) 2.4 1.0-4.0 10^3/uL Monocytes # (Auto) 0.4 0.0-1.0 10^3/uL Eosinophils # (Auto) 0.2 0.0-0.3 10^3/uL Basophils # (Auto) 0.1 0.0-0.1 10^3/uL Immature Granulocyte # (Auto) 0.0 0.0-0.1 10^3/uL Prothrombin Time 12.9 12.2-14.7 SEC INR Comment 0.9 0.8-1.4 Activated Partial Thromboplast Time 29 24-35 SEC D-Dimer < 0.27 0.00-0.49 UG/ML Sodium Level 138 135-145 MMOL/L Potassium Level 4.0 3.6-5.0 MMOL/L Chloride Level 101 98-107 MMOL/L Carbon Dioxide Level 27 21-32 MMOL/L Anion Gap 10 5-14 MMOL/L Blood Urea Nitrogen 13 7-18 MG/DL Creatinine 1.38 H 0.60-1.30 MG/DL Estimat Glomerular Filtration Rate 66 BUN/Creatinine Ratio 9 Glucose Level 101 70-105 MG/DL Calcium Level 9.6 8.5-10.1 MG/DL Corrected Calcium 8.5-10.1 MG/DL Magnesium Level 2.1 1.6-2.4 MG/DL Total Bilirubin 0.5 0.1-1.0 MG/DL Aspartate Amino Transf (AST/SGOT) 19 5-34 U/L Alanine Aminotransferase (ALT/SGPT) 22 0-55 U/L Alkaline Phosphatase 72 40-136 U/L Myoglobin 47.4 <72.0 NG/ML Troponin I < 0.30 < 0.30 <0.30 NG/ML Total Protein 7.4 6.4-8.2 GM/DL Albumin 4.8 H 3.2-4.5 GM/DL My Orders Orders - AVE PERAZA MD Cbc With Automated Diff (07/28/22 14:10) Magnesium (07/28/22 14:10) Chest 1 View Ap/Pa Only (07/28/22 14:10) Ekg Tracing (07/28/22 14:10) Comprehensive Metabolic Panel (07/28/22 14:10) Myoglobin Serum (07/28/22 14:10) Protime With Inr (07/28/22 14:10) Partial Thromboplastin Time (07/28/22 14:10) O2 (07/28/22 14:10) Monitor-Rhythm Ecg Trace Only (07/28/22 14:10) Ed Iv/Invasive Line Start (07/28/22 14:10) Troponin I Fs (07/28/22 14:10) Ekg Tracing (07/28/22 14:24) Fibrin Degradation Products (07/28/22 15:09) Aspirin Chewable Tablet (Baby Aspirin Ch (07/28/22 15:45) Troponin I Fs (07/28/22 17:45) Medications Given in ED Vital Signs/I&O 07/28/22 07/28/22 07/28/22 14:09 14:09 18:00 Temp 36.1 36.1 Pulse 92 82 Resp 19 16 B/P (MAP) 140/87 (104) 132/76 Pulse Ox 100 100 O2 Delivery Room Air Room Air Room Air Blood Pressure Mean: 104 Progress Progress Note : Progress Note Cardiac work-up was pursued including EKG x2 and serial troponins. All lab values were reviewed by me and interpreted by me. CBC, CMP, D-dimer, troponin x 2, and magnesium were all unremarkable. EKGs were interpreted by me and demonstrated no ischemic changes. There were no dynamic changes between the 2 EKGs. Patient received aspirin but no other medical therapies. His pain resolved. His paresthesia was minimal in the left forearm at discharge. Further cardiac work-up was recommended including following through with his scheduled stress test. See discharge instructions for further discussion. D- dimer was negative effectively ruling out PE and DVT which was a concern due to his travel and calf injury. EKG #1: EKG Time: 14:14 Rate: 95 Rhythm: Normal Sinus ECG Impression: Normal Comment Normal sinus rhythm with no ST elevation or depression. Nondiagnostic ST changes are noted, especially in V2. They do not meet criteria for ischemia. No abnormal intervals or axis deviation. EKG #2: EKG Time: 14:50 Rate: 78 Rhythm: Normal Sinus Intervals: Normal ECG Impression: Normal Comment Normal sinus rhythm with no ST elevation or depression. Nondiagnostic ST changes are noted, especially in V3. They do not meet criteria for ischemia. No abnormal intervals or axis deviation. No significant dynamic changes from prior. Diagnostic Imaging Diagonstic Imaging: Xray Plain Films/CT/US/NM/MRI: chest Comments NAME: PATTI AGOSTO MED REC#: [id number] PT STATUS: DEP ER : 1980 PHYSICIAN: AVE PERAZA MD ADMIT DATE: 07/28/22/ER FS Signed Date of Exam:07/28/22 CHEST 1 VIEW AP/PA ONLY INDICATION: Chest pain COMPARISON: 04/05/2022. FINDINGS: Single frontal view of the chest demonstrates normal heart size and pulmonary vascularity. The lungs are well aerated and clear. No large pleural effusion or pneumothorax is seen. The visualized osseous structures show no acute abnormalities. IMPRESSION: 1. No acute cardiopulmonary process. Dictated by: Dictated on workstation # [id number] Dict: 07/28/22 1434 Trans: 07/28/222103 [id number] [id number] Interpreted by: GUY DIAZ MD Electronically signed by: GUY DIAZ MD 07/28/222103 Departure Impression Primary Impression: Atypical chest pain Disposition: 01 HOME, SELF-CARE Condition: Improved Admissions Decision to Admit/Date: Jul 28, 2022 Departure-Patient Inst. Decision time for Depature: 17:45 Referrals: CRISTIANA MARTE MD (PCP/Family) Primary Care Physician Patient Instructions: Chest Pain Add. Discharge Instructions: Your lung and heart work-up was unremarkable in the emergency room. For further pain you may try taking Tylenol and/or ibuprofen. You may also use the Xanax as previously prescribed. Please follow-up with your primary care provider as soon as possible. Please follow through with the stress test as previously planned. If you have worsening symptoms or recurrent chest pain not responsive to Tylenol, ibuprofen, or Xanax, please return to the emergency room promptly. All discharge instructions reviewed with patient and/or family. Voiced understanding. Copy Copies To 1: CRISTIANA MARTE MD, JOSHUA T MD Jul 28, 2022 16:28
[2022-07-28 18:00] VITALS: BP 132/76
== END 2022-07-28 18:00 | disposition home or self-care (01) ==
LOC: EDUNIT# 14:09 → ER FS 14:10
DX: R07.89 Other chest pain (principal)
CPT/HCPCS: 36415; 71045; 80053; 83735; 83874; 84484; 85025; 85379; 85610; 85730; 93005; 93041